=== PATIENT | male | born 1940 | race Caucasian/White ===

== ENCOUNTER 2016-12-05 10:58 | Outpatient (CLI) | payer MEDICARE, OTHER | END 2016-12-05 10:59 | disposition home or self-care (01) | DX: N18.3 Chronic kidney disease, stage 3 (moderate) (principal); D49.0 Neoplasm of unspecified behavior of digestive system; E78.5 Hyperlipidemia, unspecified; E87.1 Hypo-osmolality and hyponatremia; R73.01 Impaired fasting glucose; G47.33 Obstructive sleep apnea (adult) (pediatric); T78.2XXA Anaphylactic shock, unspecified, initial encounter; I10 Essential (primary) hypertension ==

== ENCOUNTER 2017-02-03 09:53 | Outpatient (CLI) | payer MEDICARE, OTHER ==
[2017-02-03 20:14] LABS: HEMOGLOBIN A1C 0.59 g/dL
[2017-02-03 20:17] LABS: CALCIUM 9.8 mg/dL (8.5-10.3); CREATININE 1.5 mg/dL (0.6-1.2); POTASSIUM 3.7 mmol/L (3.5-5.0)
== END 2017-02-03 09:54 | disposition home or self-care (01) ==
LOC: LAB.F 09:53
PROVIDERS: ATTEND Internal Medicine
DX: Z00.00 Encounter for general adult medical examination without abnormal findings (principal); E78.5 Hyperlipidemia, unspecified; R73.01 Impaired fasting glucose; G47.33 Obstructive sleep apnea (adult) (pediatric); I10 Essential (primary) hypertension
CPT/HCPCS: 36415; 80048; 82043; 82570; 83036

== ENCOUNTER 2017-08-30 11:33 | Outpatient (CLI) | payer MEDICARE, OTHER ==
[2017-08-30 18:33] LABS: CALCIUM 10.3 mg/dL (8.5-10.3); CREATININE 1.3 mg/dL (0.6-1.2)
== END 2017-08-30 11:34 | disposition home or self-care (01) ==
LOC: LAB.F 11:33
PROVIDERS: ATTEND Internal Medicine
DX: I12.9 Hypertensive chronic kidney disease with stage 1 through stage 4 chronic kidney disease, or unspecified chronic kidney disease (principal); N18.3 Chronic kidney disease, stage 3 (moderate); D49.0 Neoplasm of unspecified behavior of digestive system; E78.5 Hyperlipidemia, unspecified; R73.01 Impaired fasting glucose; G47.33 Obstructive sleep apnea (adult) (pediatric)
CPT/HCPCS: 36415; 80048

== ENCOUNTER 2017-10-12 09:36 | Outpatient (CLI) | payer MEDICARE, OTHER ==
[2017-10-12 17:42] LABS: CALCIUM 10.3 mg/dL (8.5-10.3); CREATININE 1.5 mg/dL (0.6-1.2)
== END 2017-10-12 09:37 | disposition home or self-care (01) ==
LOC: LAB.F 09:36
PROVIDERS: ATTEND Internal Medicine
DX: I12.9 Hypertensive chronic kidney disease with stage 1 through stage 4 chronic kidney disease, or unspecified chronic kidney disease (principal); N18.3 Chronic kidney disease, stage 3 (moderate); D49.0 Neoplasm of unspecified behavior of digestive system; E78.5 Hyperlipidemia, unspecified; R73.01 Impaired fasting glucose; G47.33 Obstructive sleep apnea (adult) (pediatric)
CPT/HCPCS: 36415; 80048

== ENCOUNTER 2017-11-20 08:47 | Outpatient (CLI) | payer MEDICARE, OTHER ==
[2017-11-20 11:58] LABS: CREATININE 1.5 mg/dL (0.6-1.2)
[2017-11-20 12:22] LABS: HEMOGLOBIN A1C 0.6 g/dL; HEMOGLOBIN A1C % 6.1 % (4.6-6.2)
[2017-11-20 17:50] LABS: MICROALBUMIN,URINE 0.9 mg/dL (0-300.0)
== END 2017-11-20 08:48 | disposition home or self-care (01) ==
LOC: LAB.F 08:47
PROVIDERS: ATTEND Internal Medicine
DX: E11.22 Type 2 diabetes mellitus with diabetic chronic kidney disease (principal); N18.3 Chronic kidney disease, stage 3 (moderate); D64.9 Anemia, unspecified; E78.5 Hyperlipidemia, unspecified; G47.33 Obstructive sleep apnea (adult) (pediatric); I10 Essential (primary) hypertension
CPT/HCPCS: 36415; 80048; 82043; 82570; 83036

== ENCOUNTER 2017-11-21 11:23 | Outpatient (CLI) | payer MEDICARE, OTHER | END 2017-11-21 11:24 | disposition home or self-care (01) | LOC: SC 11:23 | PROVIDERS: ATTEND Internal Medicine Pulmonary Disease | DX: G47.33 Obstructive sleep apnea (adult) (pediatric) (principal) | CPT/HCPCS: 99203; G0463; 99212 ==

== ENCOUNTER 2017-12-28 09:03 | Emergency (ER) | payer MEDICARE, OTHER ==
[2017-12-28 09:32] VITALS: BP 137/77
[2017-12-28] MEDS ORDERED: BACITRACIN OINT TOP STA (10:50)
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
== END 2017-12-28 11:12 | disposition home or self-care (01) ==
LOC: ED 09:03
DX: T25.622A Corrosion of second degree of left foot, initial encounter (principal); T32.0 Corrosions involving less than 10% of body surface; T52.0X1A Toxic effect of petroleum products, accidental (unintentional), initial encounter; I10 Essential (primary) hypertension; E11.9 Type 2 diabetes mellitus without complications; Z79.84 Long term (current) use of oral hypoglycemic drugs; Y93.E9 Activity, other interior property and clothing maintenance
CPT/HCPCS: 99282; 99283; A9270

== ENCOUNTER 2017-12-29 10:33 | Outpatient (CLI) | payer MEDICARE, OTHER ==
[2017-12-29 17:45] LABS: BUN - BLOOD UREA NITROGEN 20 mg/dL (6-20); CALCIUM 10.5 mg/dL (8.5-10.3); CARBON DIOXIDE - CO2 24 mmol/L (21-32); CHLORIDE 101 mmol/L (101-111); CHOL/HDL RATIO 3.9 (<5.0); CHOLESTEROL 158 mg/dL; CREATININE 1.4 mg/dL (0.6-1.2); GFR - MDRD 49 (>89); GLUCOSE 110 mg/dL (70-100); HDL CHOLESTEROL 41 mg/dL; LDL CHOLESTEROL,CALCULATED 82 mg/dL; SODIUM 134 mmol/L (135-145); VLDL CHOLESTEROL 35 mg/dL
[2017-12-29 18:46] LABS: HB2 TOTAL 15.5 g/dL; HEMOGLOBIN A1C 0.62 g/dL; HEMOGLOBIN A1C % 5.8 % (4.6-6.2)
== END 2017-12-29 10:34 | disposition home or self-care (01) ==
LOC: LAB.F 10:33
PROVIDERS: ATTEND Internal Medicine
DX: I12.9 Hypertensive chronic kidney disease with stage 1 through stage 4 chronic kidney disease, or unspecified chronic kidney disease (principal); E11.22 Type 2 diabetes mellitus with diabetic chronic kidney disease; N18.3 Chronic kidney disease, stage 3 (moderate); D49.0 Neoplasm of unspecified behavior of digestive system; E78.5 Hyperlipidemia, unspecified; G47.33 Obstructive sleep apnea (adult) (pediatric)
CPT/HCPCS: 36415; 80048; 80061; 83036; 83721

== ENCOUNTER 2018-02-08 13:03 | Outpatient (CLI) | payer MEDICARE, OTHER | END 2018-02-08 13:04 | disposition home or self-care (01) | LOC: SC 13:03 | PROVIDERS: ATTEND Nurse Practitioner Family | DX: G47.33 Obstructive sleep apnea (adult) (pediatric) (principal) | CPT/HCPCS: 99215; G0463; 99212 ==

== ENCOUNTER 2018-04-13 11:32 | Emergency (ER) | payer MEDICARE, OTHER ==
[2018-04-13] MEDS ORDERED: TETANUS/DIPHTHERIA/PERTUSSIS 0.5 ML SYRINGE IM ONE (12:29)
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
[2018-04-13 12:37] VITALS: BP 146/81
== END 2018-04-13 12:45 | disposition home or self-care (01) ==
LOC: ED 11:32
DX: S01.01XA Laceration without foreign body of scalp, initial encounter (principal); W22.09XA Striking against other stationary object, initial encounter; Y92.410 Unspecified street and highway as the place of occurrence of the external cause; I10 Essential (primary) hypertension; E11.9 Type 2 diabetes mellitus without complications; Z79.84 Long term (current) use of oral hypoglycemic drugs; Z23 Encounter for immunization
CPT/HCPCS: 12001; 90471; 99282; 99283

== ENCOUNTER 2019-04-02 12:48 | Outpatient (CLI) | payer MEDICARE, OTHER ==
[2019-04-02 18:51] LABS: CREATININE,URINE 29.2 mg/dL; MICROALBUM/CREATININE RATIO,UR 17.1 ug/mg (<30.0); MICROALBUMIN,URINE 0.5 mg/dL (0-300.0)
[2019-04-02 18:56] LABS: BUN - BLOOD UREA NITROGEN 29 mg/dL (6-20); CALCIUM 10.2 mg/dL (8.5-10.3); CARBON DIOXIDE - CO2 24 mmol/L (21-32); CHLORIDE 105 mmol/L (101-111); CHOL/HDL RATIO 3.7 (<5.0); CHOLESTEROL 136 mg/dL; CREATININE 1.5 mg/dL (0.6-1.2); GFR - MDRD 45 (>89); GLUCOSE 140 mg/dL (70-100); HDL CHOLESTEROL 37 mg/dL; LDL CHOLESTEROL,CALCULATED 50 mg/dL; LDL/HDL RATIO 1.4 (<3.6); SODIUM 138 mmol/L (135-145); URIC ACID 9.9 mg/dL (2.6-7.2); VLDL CHOLESTEROL 49 mg/dL
[2019-04-02 19:42] LABS: HB2 TOTAL 11.9 g/dL; HEMOGLOBIN A1C 0.59 g/dL; HEMOGLOBIN A1C % 6.7 % (4.6-6.2)
== END 2019-04-02 12:52 | disposition home or self-care (01) ==
LOC: LAB.S 12:48
PROVIDERS: ATTEND Internal Medicine
DX: N18.3 Chronic kidney disease, stage 3 (moderate) (principal); E11.9 Type 2 diabetes mellitus without complications; M10.9 Gout, unspecified; E78.5 Hyperlipidemia, unspecified
CPT/HCPCS: 36415; 80048; 80061; 82043; 82570; 83036; 83721; 84550

== ENCOUNTER 2020-01-02 14:00 | Outpatient (CLI) | payer MEDICARE, OTHER ==
--- NOTE | 2020-01-02 13:24 | SLEEP CARE CONSULTATION ---
Information from patient questionnaire entered by Leida Walker. I have reviewed and concur with the information entered by Leida Walker. This document represents the service I personally performed and the decisions made by me, Magaly Montoya, RN, MSN, CANCELING MACHINE OPERATOR. History of Present Illness Service Date and Time: 01/02/2020 1300 Previous diagnosis: Severe, Obstructive Sleep Apnea-Hypopnea Syndrome AHI: 43.1 (in 2006) Reason for follow up: annual (last seen 2018) Equipment type: CPAP Equipment obtained from: [facility] - getting supplies Mask style: Full face Backup mask available: Yes (old mask ) Last cushion change: a month ago Prior sleep studies: Yes Year and Where: 2006 - [facility] Type of Sleep Study: Polysomnography CPAP Compliance Data - Data Reviewed with Patient Average duration of nightly device use: 8.5 Compliance rate %: 98.3 (180 days) Current pressure setting (cmH2O): 14-18 Humidity settin Heated hose settin Average residual AHI: 2.3 Average large leak: 32 min 48 sec Subjective Patient concerns: reports: mask leak noise (rare ). denies: aerophagia, mask discomfort, air blowing in eyes, condensation in mask/hose, nasal congestion, dry mouth, nose, throat, epistaxis, other Observed to snore while using device: No Current pressure setting perceived as: comfortable On therapy, patient: reports: sleeping better, awakening more refreshed, being more awake and alert during the day, more rested overall. denies: drowsiness while driving Initial [place] Sleepiness Scale score: 12 (in 2006) Allergies and Home Medications Home medication list reviewed: No (lisinopril allegry -oral edema) Review of Systems Review of systems same as previous: No (ICU for lisinopril reaction - monitoring BP) Physical Exam Height: 5 ft 11 in Weight: 250 lb (home weight) Body Mass Index: 34.8 BMI Classification: Obese Impression and Plan 1. Obstructive Sleep Apnea-Hypopnea Syndrome, severe, with good treatment compliance and good apnea control. On CPAP therapy, the patient has better sleep quality and is more rested overall. Patient is very pleased with benefit of CPAP treatment and finds it difficult to sleep without it. He is advised to change his mask cushion more frequently to reduce mask leaks. Currently patients BMI is 33.5 obesity class . I counseled patient how Obesity increases the risk of apnea, CPAP pressure requirements and overall health risks especially cardiovascular and diabetes. Thus patient is advised to lose weight. Weight loss can be done with reducing portion size, reducing refined foods and balancing content with vegetables, fruit and protein. A diet consultation can be helpful in achieving optimal weight loss goals. Patient encouraged to discuss their weight loss goals with their PCP and consider a referral to a cut off machine helper. The patient's CPAP pressure was changed to 12-15 cmH2O to accommodate future weight loss. Symptoms to report for additional pressure adjustment discussed. Patient's apnea severity and rationale for treatment to reduce apnea, improve sleep quality and reduce cardiovascular and cerebrovascular events was reviewed. I also reviewed the benefit of consistent device use of CPAP for hypertension. * change auto CPAP pressure at 12-15 cmH2O * Notify me if snoring with mask or feeling that the pressure is too much or too little * Attempt to lose weight * Call this office if any problems using CPAP * Return for follow up in 1 year , or sooner if concerns arise
== END 2020-01-02 14:01 | disposition home or self-care (01) ==
LOC: SC 14:00
PROVIDERS: ATTEND Nurse Practitioner Family
DX: G47.33 Obstructive sleep apnea (adult) (pediatric) (principal); E66.9 Obesity, unspecified; Z68.34 Body mass index [BMI] 34.0-34.9, adult

== ENCOUNTER 2021-01-26 13:01 | Outpatient (CLI) | payer MEDICARE, OTHER ==
--- NOTE | 2021-01-26 13:18 | SLEEP CARE CONSULTATION ---
Information from patient questionnaire entered by Leida Walker. I have reviewed and concur with the information entered by Leida Walker. This document represents the service I personally performed and the decisions made by , Cynthia Ctoa ARNP. History of Present Illness Service Date and Time: 01/26/2021 1301 Previous diagnosis: Severe, Obstructive Sleep Apnea-Hypopnea Syndrome AHI: 43.1 (in 2006) Reason for follow up: annual (last seen 12/2019) Equipment type: CPAP Equipment obtained from: Other ([facility]; getting supplies as needed) Mask style: Full face Backup mask available: Yes (old mask) Last cushion change: 1 week ago Prior sleep studies: Yes Year and Where: 2006 - [facility] Type of Sleep Study: Polysomnography HPI additional information: KWAN VELÁSQUEZ was diagnosed to have severe, AHI 43.1, obstructive sleep apnea- hypopnea syndrome and returns via Telehealth visit today for CPAP therapy annual follow-up. CPAP Compliance Data - Data Reviewed with Patient Average duration of nightly device use: 8 hr 2 min Compliance rate %: 96.7 (180 days) Current pressure setting (cmH2O): 12-15 Humidity settin Heated hose settin Average residual AHI: 2.6 Average large leak: 37 min 26 sec Subjective Patient concerns: reports: dry mouth, nose, throat (chronic, new diagnosis of diabetes). denies: aerophagia, mask discomfort, air blowing in eyes, mask leak noise, condensation in mask/hose, nasal congestion, epistaxis, other Observed to snore while using device: No Current pressure setting perceived as: comfortable On therapy, patient: reports: sleeping better, awakening more refreshed, being more awake and alert during the day, more rested overall. denies: drowsiness while driving Initial [place] Sleepiness Scale score: 12 (in 2006) Current [place] Sleepiness Scale score: 8 Allergies and Home Medications Home medication list reviewed: Yes (Metformin) Review of Systems Review of systems same as previous: No (diabetes) Physical Exam Vital signs obtained and entered by: Telehealth visit to reduce exposure during Covid pandemic Height: 5 ft 11 in Weight: 215 lb (patient measured at home) Body Mass Index: 29.9 BMI Classification: Overweight Impression and Plan 1. Obstructive Sleep Apnea-Hypopnea Syndrome, severe, with good treatment compliance and good apnea control. On CPAP therapy, the patient has better sleep quality and is more rested overall. Patient has significant improvement of his sleep apnea. He states that he has lost weight down to 215 pounds and been diagnosed with diabetes this last year. He is happy with his current CPAP therapy tends to use his CPAP long-term. Patient's apnea severity and rationale for treatment to reduce apnea, improve sleep quality and reduce cardiovascular and cerebrovascular events was reviewed. I also reviewed the benefit of consistent device use of CPAP for hypertension and diabetes. * Continue auto CPAP pressure at 12-15 cmH2O * Notify me if snoring with mask or feeling that the pressure is too much or too little * Continue to try to lose weight * Call this office if any problems using CPAP * Return for follow up in 1 year, or sooner if concerns arise Counseling Topics: Spare mask, Weight loss health impact Visit Type: Telehealth Video Video Type: VSee Patient Location: Home Location of Provider: Office Patient agrees and consents to this telehealth visit type: Yes Patient agrees to have their insurance billed: Yes Time Spent with Patient (minutes): 13 Provider Statement: I spent 100% of the Telehealth Video Call with the patient with greater than 50% spent counseling the patient and coordination of care.
== END 2021-01-26 13:02 | disposition home or self-care (01) ==
LOC: SC 13:01
PROVIDERS: ATTEND Nurse Practitioner Family
DX: G47.33 Obstructive sleep apnea (adult) (pediatric) (principal); E66.3 Overweight; Z68.29 Body mass index [BMI] 29.0-29.9, adult